=== PATIENT | male | born 1955 | race Caucasian/White ===

== ENCOUNTER 2016-11-08 20:12 | Inpatient (IN) | payer OTHER ==
--- NOTE | 2016-11-08 20:55 | EDPHY ---
H & P Stated Complaint: fall and put hands out now r shldr injury Time Seen by Provider: 11/08/16 20:55 HPI/ROS: CHIEF COMPLAINT: Right shoulder pain following mechanical fall HISTORY OF PRESENT ILLNESS: The patient presents to the emergency department with complaints of right shoulder pain following a mechanical fall. Patient reportedly tripped while walking this evening. He fell onto an outstretched hand landing primarily on his right shoulder. The patient did not strike his head or lose consciousness. He did sustain an abrasion to his right knee. The patient denies headache, neck pain, chest pain, back pain or any extremity complaints aside from his right shoulder pain. The patient does have a history of diabetes. He takes metformin for this condition. The patient is not anticoagulated. The patient has moderate pain with movement. The patient denies any acute focal numbness or weakness. 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 REVIEW OF SYSTEMS: A comprehensive 10 point review of systems is otherwise negative aside from elements mentioned in the history of present illness. Source: Patient Exam Limitations: No limitations - Personal History Current Tetanus/Diphtheria Vaccine: Unsure Current Tetanus Diphtheria and Acellular Pertussis (TDAP): Unsure - Medical/Surgical History Hx Asthma: No Hx Chronic Respiratory Disease: No Hx Diabetes: Yes Hx Cardiac Disease: No Hx Renal Disease: No Hx Cirrhosis: No Hx Alcoholism: No Hx HIV/AIDS: No Hx Splenectomy or Spleen Trauma: No - Social History Smoking Status: Never smoked - Physical Exam Exam: General Appearance: Alert, obese male, mild discomfort secondary to pain Head: Atraumatic Eyes: Pupils equal, round, reactive ENT, Mouth: No hemotympanum, no oral trauma Neck: Nontender, trachea midline Respiratory: No chest wall tender, subcutaneous air, lungs clear bilaterally Cardiovascular: Regular rate and rhythm Abdomen: Abdomen is soft and nontender, pelvis stable Skin: Superficial abrasion noted to the right knee Back: No midline T/L/S pain Extremities: Tenderness to palpation and decreased range of motion noted to the right right shoulder. Neurological: A&Ox3, normal motor function, normal sensory exam Constitutional: Initial Vital Signs Temperature (C) 36.8 C 11/08/16 20:32 Heart Rate 102 H 11/08/16 20:32 Respiratory Rate 19 11/08/16 20:32 Blood Pressure 152/96 H 11/08/16 20:32 O2 Sat (%) 92 11/08/16 20:32 O2 Delivery Mode Room Air Allergies/Adverse Reactions: No Known Allergies Allergy (Unverified 11/08/16 20:31) Home Medications: Medication Instructions Recorded Glucophage 500 mg (*) 11/08/16 Levothyroxine 11/08/16 Medical Decision Making - Diagnostics Imaging Results: Imaging Impressions Shoulder X-Ray 11/08/16 20:38 Impression: Comminuted fracture of the proximal right humeral head neck junction. Possible associated glenoid fracture superiorly. Right shoulder x-ray: Images reviewed by myself, comminuted humeral head fracture Imaging: Discussed imaging studies w/ call center consultant Radiologist, I viewed and interpreted images myself ED Course/Re-evaluation: The patient had an IV established. The patient received IV morphine. The patient is currently living in a hotel room here [facility]. He has no family traveling with him. The patient is unable to safely or dress himself currently. The patient does have an abrasion over his right knee but has normal range of motion nothing to suggest an acute fracture. The patient has no clinical evidence of a closed head injury or cervical spine fracture. The patient will require admission to the hospital for pain control and PT and OT evaluation. Dr. Taurus Yates from Orthopedic surgery has been consulted and will see the patient as an inpatient. Consultation was made with Dr. Cecilio uRiz from the hospitalist service. Differential Diagnosis: Differential diagnosis considered includes humerus fracture, neurovascular injury, laceration, metabolic abnormality, dehydration - Data Points Laboratory Results: Laboratory Results 11/08/16 21:30 11/08/16 21:30 11/08/16 11/08/16 21:30 21:30 WBC 10.66 10^3/uL H 10^3/uL (3.80-9.50) RBC 5.18 10^6/uL 10^6/uL (4.40-6.38) Hgb 15.0 g/dL g/dL (13.7-17.5) Hct 45.8 % % (40.0-51.0) MCV 88.4 fL fL (81.5-99.8) MCH 29.0 pg pg (27.9-34.1) MCHC 32.8 g/dL g/dL (32.4-36.7) RDW 15.5 % H % (11.5-15.2) Plt Count 242 10^3/uL 10^3/uL (150-400) MPV 10.9 fL fL (8.7-11.7) Neut % (Auto) 73.4 % % (39.3-74.2) Lymph % (Auto) 19.2 % % (15.0-45.0) [place] % (Auto) 6.3 % % (4.5-13.0) Eos % (Auto) 0.3 % L % (0.6-7.6) Baso % (Auto) 0.4 % % (0.3-1.7) Nucleat RBC Rel Count 0.0 % % (0.0-0.2) Absolute Neuts (auto) 7.83 10^3/uL H 10^3/uL (1.70-6.50) Absolute Lymphs (auto) 2.05 10^3/uL 10^3/uL (1.00-3.00) Absolute Monos (auto) 0.67 10^3/uL 10^3/uL (0.30-0.80) Absolute Eos (auto) 0.03 10^3/uL 10^3/uL (0.03-0.40) Absolute Basos (auto) 0.04 10^3/uL 10^3/uL (0.02-0.10) Absolute Nucleated RBC 0.00 10^3/uL 10^3/uL (0-0.01) Immature Gran % 0.4 % % (0.0-1.1) Immature Gran # 0.04 10^3/uL 10^3/uL (0.00-0.10) Sodium 140 mEq/L mEq/L (134-144) Potassium 4.9 mEq/L mEq/L (3.5-5.2) Chloride 104 mEq/L mEq/L (97-110) Carbon Dioxide 24 mEq/l mEq/l (22-31) Anion Gap 12 mEq/L mEq/L (8-16) BUN 23 mg/dL mg/dL (7-23) Creatinine 1.1 mg/dL mg/dL (0.7-1.3) Estimated GFR > 60 Glucose 146 mg/dL H mg/dL (70-100) Calcium 9.3 mg/dL mg/dL (8.5-10.4) Medications Given: Discontinued Medications Morphine Sulfate (Morphine) 4 mg IVP EDNOW ONE Stop: 11/08/16 21:18 Last Admin: 11/08/16 21:35 Dose: 4 mg Departure - Departure Disposition: [facility] Inpatient Acute Clinical Impression: Closed right humeral fracture, Diabetes Condition: Good
[2016-11-08] MEDS ORDERED: NS 1,000 ML IV ONE (21:35)
[2016-11-08 21:51] LABS: % IMMATURE GRANULYOCYTES 0.4 % (0.0-1.1); ABSOLUTE IMMATURE GRANULOCYTES 0.04 10^3/uL (0.00-0.10); ADD DIFF? NO; ADD MORPH? NO; ADD SCAN? NO; ATYPICAL LYMPHOCYTE FLAG 0 (0-99); FRAGMENT RBC FLAG 0 (0-99); HEMATOCRIT 45.8 % (40.0-51.0); LEFT SHIFT FLG 0 (0-99); LIPEMIA HEMOLYSIS FLAG 80 (0-99); MEAN CELL HEMOGLOBIN CONCENTR. 32.8 g/dL (32.4-36.7); MEAN CELL VOLUME 88.4 fL (81.5-99.8); MEAN PLATELET VOLUME 10.9 fL (8.7-11.7); PLATELET CLUMPS FLAG 10 (0-99); PLATELET COUNT 242 10^3/uL (150-400); RED BLOOD CELL COUNT 5.18 10^6/uL (4.40-6.38); RED CELL DISTRIBUTION WIDTH 15.5 % (11.5-15.2)
[2016-11-08 21:56] LABS: ANION GAP 12 mEq/L (8-16); CALCIUM 9.3 mg/dL (8.5-10.4); CARBON DIOXIDE 24 mEq/l (22-31); CHLORIDE 104 mEq/L (97-110); CREATININE 1.1 mg/dL (0.7-1.3); GLOMERULAR FILTRATION RATE > 60; GLUCOSE 146 mg/dL (70-100); POTASSIUM 4.9 mEq/L (3.5-5.2); SODIUM 140 mEq/L (134-144)
[2016-11-08] MEDS ORDERED: ONDANSETRON DISINTEGRATING 4 MG TAB PO PRN (23:53)
[2016-11-08] MEDS ORDERED: ONDANSETRON 4 MG/2 ML VIAL IVP PRN (23:53)
[2016-11-08] MEDS ORDERED: oxyCODONE IR 5 MG TAB PO PRN (23:54)
[2016-11-08] MEDS ORDERED: D50W 25 GM/50 ML SYR IVP PRN (23:56)
[2016-11-09] MEDS: ACETAMINOPHEN 325 MG TAB PO PRN ×2 (00:10→20:07)
[2016-11-09] MEDS ORDERED: NS 1,000 ML IV SCH (00:15)
--- NOTE | 2016-11-09 00:48 | GHP ---
[f rep st] HISTORY AND PHYSICAL DATE OF ADMISSION: 11/08/2016 CHIEF COMPLAINT: Comminuted fracture through right humeral head. HISTORY OF PRESENT ILLNESS: Patient is a 61-year-old Polish male here visiting from [place] for work, who presented to the emergency room after falling and developing right shoulder pain. He was on his way to dinner and tripped when he was walking. He fell out on outstretched hands, but primarily landed on his right shoulder. He did not strike his head or lose consciousness. He did have abrasions to his right knee. He denies any headache , neck pain, chest pain, back pain. No prodromal symptoms of shortness of breath , dizziness or clamminess. REVIEW OF SYSTEMS: I completed a 10-point review of systems. PAST MEDICAL HISTORY: Diabetes, hypothyroidism, obesity. PAST SURGICAL HISTORY: None. ALLERGIES: No known drug allergies. HOME MEDICATIONS: B12, metformin, Synthroid. 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 No tobacco. Endorses alcohol. No illicits. FAMILY HISTORY: Mother with diabetes. PHYSICAL EXAM: VITAL SIGNS: Temperature 36.8, blood pressure 152/96, heart rate 102, respirations 18, 92% on room air. GENERAL: Obese male sitting up in bed, no acute distress. HEENT: PERRLA. EOMI. Oropharynx clear. CV: Regular rate and rhythm. No murmurs, gallops or rubs. LUNGS: Clear to auscultation bilaterally. ABDOMEN: Obese, soft, nontender, nondistended. : No suprapubic tenderness. No Delarosa. MUSCULOSKELETAL: Right arm in a sling. Right knee abrasion. NEUROLOGIC: 2 through 12 intact. PSYCHIATRIC: Alert and oriented x3. LABORATORY DATA: WBC is 10, hemoglobin 15, hematocrit 45, platelets 242. Sodium 140, potassium 4.9, chloride 109, carbon dioxide 24, BUN 23, creatinine 1.1, glucose 146, calcium 9.3. Hand x-ray: No acute fracture. First CMC joint OA. Shoulder x-ray: Comminuted fracture of the proximal right humeral head neck junction. Possible associated glenoid fracture superiorly. ASSESSMENT AND PLAN: 1. Right humeral head neck junction fracture: due to mechanical fall. Minimal pain now. Orthopedics to see in morning. Continue Tylenol and p.r.n. oxycodone as needed. N.p.o. in case of surgical intervention. 2. Obesity. Counseled on diet and exercise. 3. Controlled diabetes: metformin at home; place on SSI here. 4. Acute shoulder pain: plan as noted above.. 5. Left hand pain. X-ray negative. 6. Diet. N.p.o. after midnight. 7. Deep vein thrombosis prophylaxis. Low risk, ambulatory. 8. Disposition. Patient warrants observation admission, given acute fracture warranting surgical evaluation and pain control. /[id number]/MODL MTDD
[2016-11-09 05:57] LABS: ANION GAP 8 mEq/L (8-16); CALCIUM 8.5 mg/dL (8.5-10.4); CARBON DIOXIDE 25 mEq/l (22-31); CHLORIDE 106 mEq/L (97-110); GLOMERULAR FILTRATION RATE > 60; GLUCOSE 120 mg/dL (70-100); POTASSIUM 4.4 mEq/L (3.5-5.2); SODIUM 139 mEq/L (134-144)
[2016-11-09] MEDS: INSULIN LISPRO 100 UNIT/ML SC SCH ×3 (08:50→18:05)
--- NOTE | 2016-11-09 11:25 | GCON ---
[f rep st] CONSULTATION DATE OF CONSULTATION: 11/09/2016 CHIEF COMPLAINT: Right shoulder pain. HISTORY OF PRESENT ILLNESS: This is a 61-year-old male who presents to the emergency department aft er a fall on November 08, 2016, with subsequent right shoulder pain. X-rays done in the ER show a fractu re of the right humerus. Patient has been in a simple sling for comfort. The patient states his pa in today is well-controlled and minimal at rest. Pain increases with any type of shoulder range of motion. Patient has been receiving oxycodone for pain with good relief. Patient states he is here visiting for work from [facility] [employer]. Patient denies any fever, chills, numbness, tingling, or wea kness. PAST MEDICAL HISTORY: Hypothyroid, diabetes, and obesity. PAST SURGICAL HISTORY: None. ALLERGIES: No known drug allergies. SOCIAL HISTORY: Patient here for business. 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 REVIEW OF SYSTEMS: No other complaints after a 10-point review. PHYSICAL EXAMINATION: GENERAL: The patient is a healthy, well-appearing male. He is alert, active , and in no acute distress. HEENT: Head is normocephalic, atraumatic. Nose, ears, and mouth appea r normal. Eye motion is intact. NECK: Normal in appearance with midline trachea. LUNGS: Chest m otion appears normal. Respirations are nonlabored. MUSCULOSKELETAL: Skin is intact over the right upper extremity without any ecchymosis, edema, erythema, or color. Patient has tenderness along th e anterior humerus. There is full range of motion of the elbow, wrists, and fingers bilaterally. S houlder range of motion and strength is not tested secondary to pain. Patient has sensation intact throughout, specifically of the deltoid muscle and sensory branches. Patient with good terminal worker strengt h. Radial pulse 2+ bilaterally. Calves are soft and nontender with negative Homans. SKIN: Please see dictation above. There is a small abrasion of the left palm. Otherwise, no other abrasions, e rythema, or tattoos. NEUROLOGICAL: Appears alert and oriented to person, place, and time. Speech is fluid and fluent. PSYCHIATRIC: Affect is normal. RADIOGRAPHIC DATA: 2-views of the right shoulder are reviewed and show a comminuted fracture throug h the right humeral neck. ASSESSMENT AND PLAN: Comminuted right humeral neck fracture. Discussed with patient that the fract ure does seem stable on films today. He will be transitioned from a simple sling into a gunslinger sling with abductor pillow. We will see if this sling gives him better pain control. Patient will be nonweightbearing of the right upper extremity. Wrist and hand range of motion is okay. Again, p atkayla will not have any range of motion of the right shoulder. No surgery at this time, but we carrie l watch the stability of the fracture closely. We will have the patient followup in the office in 1 week for repeat radiographs. Discussed with patient that he is able to rearrange his flight and he would prefer to extend his trip to further his care here in [place]. We will continue pain manage ment and ice as needed for any pain and swelling of the right shoulder. Patient understands and agr ees to the treatment plan today, and the possibility of needing operative treatment in the future. All of his questions have been answered today. /[id number]/MODL
--- NOTE | 2016-11-09 12:09 | HOSPPROG ---
Hospitalist Progress Note Assessment/Plan: 61y male with mechanical fall. #Right humeral neck fx nonsurgical nonweightbearing sling follow up 1 week with ortho #Pain cont supportive care #DM restart home meds #Obese #HTN home meds #Dispo unclear, unable to care for himself in hotel from [place] no family here D/W CM, develop dispo plan Subjective: Up in the chair. No complaints. Difficult to move. Objective: Vital Signs Temp Pulse Resp BP Pulse Ox 36.4 C 90 18 142/101 H 93 11/09/16 11:28 11/09/16 11:28 11/09/16 11:28 11/09/16 11:28 11/09/16 11:28 Laboratory Results 11/09/16 05:28 11/08/16 11/09/16 11/10/16 05:59 05:59 05:59 Intake Total 1600 Output Total 300 Balance 1600 -300 - Physical Exam Constitutional: no apparent distress, appears nourished, obese Eyes: PERRL, anicteric sclera, EOMI Ears, Nose, Mouth, Throat: moist mucous membranes, hearing normal, ears appear normal Cardiovascular: No JVD, No tachycardia, No edema Respiratory: no respiratory distress, no rales or rhonchi, reduced air movement Gastrointestinal: No tenderness, No ascites, No guarding Skin: warm, normal color, No no rashes or abrasions Musculoskeletal: joint tenderness, pain with ROM, generalized weakness Neurologic: AAOx3 Psychiatric: interacting appropriately, not anxious, not encephalopathic ICD10 Worksheet Patient Problems: Problems Problem Status Onset Closed right humeral fracture Acute Diabetes Acute
[2016-11-09] MEDS ORDERED: CYANOCOBALAMIN 1000 MG PO SCH (16:00)
[2016-11-09] MEDS ORDERED: CYANO/VITAMIN B12 1000 MCG TAB PO SCH (16:00)
[2016-11-09] MEDS: BISOPROLOL FUMARATE 5 MG TAB PO SCH ×2 (16:18→21:22)
[2016-11-09] MEDS ORDERED: METFORMIN 1000 MG PO SCH (18:00)
[2016-11-09] MEDS: METFORMIN PO SCH (21:16)
[2016-11-10] MEDS ORDERED: TEMAZEPAM 15 MG CAP PO PRN (03:07)
[2016-11-10] MEDS: ACETAMINOPHEN 325 MG TAB PO PRN ×2 (03:12→22:19)
--- NOTE | 2016-11-10 06:50 | SOAPPROG ---
REDDY Progress Note Assessment/Plan: Assessment/Plan: Right proximal humeral neck fracture, comminuted -Nonoperative management at this time -Cont PT/OT, will remain NWB of RUE, remain in abduction sling at all times, ok for hand/wrist ROM -Cont current PO pain regimen -Will likely need some assistance w/ lodging/care at d/c -Pt cleared to d/c from ortho standpoint, will f/u w/ Dr. Yates in 1 week for repeat radiographs and assessment 11/10/16 10:55 Subjective: Pt seen at bedside, sitting up. States he is tolerating his diet and medications well, current pain a 2/10. Tolerating abduction sling well, and states he has been compliant with his activity/ROM restrictions. Denies any mauro , sob, cp, abd pain, bilat calf pain or new onset n/t. No additional concerns or complaints at this time. The pt notes he is here visiting from [place], and is not sure if his coverage will allow him to arrange any lodging or additional care before he is cleared to fly. We have discussed possible options and will have case management eval. Objective: Vital Signs Temp Pulse Resp BP Pulse Ox 35.9 C L 86 18 120/83 H 96 11/10/16 05:22 11/10/16 05:22 11/10/16 00:00 11/10/16 05:22 11/10/16 05:22 Laboratory Results 11/09/16 05:28 11/09/16 11/10/16 11/11/16 05:59 05:59 05:59 Intake Total 1600 250 Output Total 550 Balance 1600 -300 Pt seen at bedside. A&Ox3, appropriate mood and affect, pleasant and cooperative with exam. VSS. RUE in abduction sling. TTP over proximal humerus. Upper arm compartments are supple, forearm compartments are supple. Radial and ulnar pulses are intact and equal compared bilat. Pt intact to light touch sensation distally. Pt moves fingers and hand well. DNVI BUE. ICD10 Worksheet Patient Problems: Problems Problem Status Onset Closed right humeral fracture Acute Diabetes Acute
[2016-11-10] MEDS: BISOPROLOL FUMARATE 5 MG TAB PO SCH (08:06)
[2016-11-10] MEDS: INSULIN LISPRO 100 UNIT/ML SC SCH ×3 (08:07→16:20)
[2016-11-10] MEDS: METFORMIN PO SCH ×2 (08:07→20:53)
[2016-11-10] MEDS ORDERED: BLOOD PRESSURE MEDICATION PO SCH (09:00)
--- NOTE | 2016-11-10 13:57 | HOSPPROG ---
Hospitalist Progress Note Assessment/Plan: 61y male with mechanical fall. #Right humeral neck fx nonsurgical nonweightbearing sling follow up 1 week with ortho #Pain cont supportive care #DM restart home meds #Obese #HTN home meds #Dispo unclear, unable to care for himself in hotel from [place] no family here D/W CM, develop dispo plan hopefully in am Subjective: Pain controlled. Up eating breakfast. No specific complaints. Objective: Vital Signs Temp Pulse Resp BP Pulse Ox 37.1 C 88 16 129/84 H 90 L 11/10/16 11:18 11/10/16 11:18 11/10/16 11:18 11/10/16 11:18 11/10/16 11:18 Laboratory Results 11/09/16 05:28 11/09/16 11/10/16 11/11/16 05:59 05:59 05:59 Intake Total 1600 250 Output Total 550 Balance 1600 -300 - Physical Exam Constitutional: appears nourished, obese Eyes: PERRL, anicteric sclera, EOMI Ears, Nose, Mouth, Throat: moist mucous membranes, hearing normal, ears appear normal Cardiovascular: No JVD, No tachycardia, No edema Respiratory: no respiratory distress, reduced air movement Gastrointestinal: No tenderness, No ascites Skin: warm, normal color Musculoskeletal: no joint effusions, muscular tenderness, No normal joint ROM Neurologic: AAOx3 Psychiatric: not anxious, not encephalopathic, thought process linear ICD10 Worksheet Patient Problems: Problems Problem Status Onset Closed right humeral fracture Acute Diabetes Acute
[2016-11-11] MEDS: ACETAMINOPHEN 325 MG TAB PO PRN ×2 (04:29→08:43)
--- NOTE | 2016-11-11 07:51 | SOAPPROG ---
SOAP Progress Note Assessment/Plan: Assessment/Plan: Right proximal humeral neck fracture, comminuted -Nonoperative management at this time -Cont PT/OT, will remain NWB of RUE, remain in abduction sling at all times, ok for hand/wrist ROM -Cont current PO pain regimen as tolerated -Will likely need some assistance w/ lodging/care at d/c -Pt cleared to d/c from ortho standpoint, will f/u w/ Dr. Yates in 1 week for repeat radiographs and assessment -CM working on placement plan for d/c 11/11/16 07:51 Subjective: Pt seen at bedside, sitting up. States he is tolerating his diet and medications well, current pain a 0/10. Tolerating abduction sling well, and states he has been compliant with his activity/ROM restrictions. He does note some difficulty sleeping overnight related to positioning with his sling. No additional concerns or complaints at this time. The pt notes he is here visiting from [place]. 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 Pt notes he will also need help extending his visa for this extended stay. Objective: Vital Signs Temp Pulse Resp BP Pulse Ox 36.6 C 77 18 137/86 H 93 11/10/16 23:48 11/10/16 23:48 11/11/16 04:32 11/11/16 04:32 11/11/16 04:32 11/10/16 11/11/16 11/12/16 05:59 05:59 05:59 Intake Total 450 Output Total 200 Balance 250 Pt seen at bedside. A&Ox3, appropriate mood and affect, pleasant and cooperative with exam. VSS. RUE in abduction sling. TTP over proximal humerus. Upper arm compartments are supple, forearm compartments are supple. Radial and ulnar pulses are intact and equal compared bilat. Pt intact to light touch sensation distally. Pt moves fingers and hand well. Right neck musculature more relaxed on exam in comparison to yesterday. DNVI NICK. ICD10 Worksheet Patient Problems: Problems Problem Status Onset Closed right humeral fracture Acute Diabetes Acute
[2016-11-11] MEDS: INSULIN LISPRO 100 UNIT/ML SC SCH ×2 (08:03→11:35)
[2016-11-11] MEDS: METFORMIN PO SCH (08:42)
[2016-11-11] MEDS: BISOPROLOL FUMARATE 5 MG TAB PO SCH (08:43)
--- NOTE | 2016-11-11 14:18 | PDDCSUM ---
Discharge Summary Discharge Summary: 61y male admitted after mechanical fall and subsequent right humeral neck fracture. Nonsurgical mgmt. He is to remain nonweightbearing. It is being managed conservatively with a abduction sling and the plan is for the pt to f/u with ortho (Dr. Yates) in 1 week. OK for hand/wrist ROM. He will be provided Oxycodone 5mg pills for pain mgmt. He has a hx of insomnia and I've given him a prescription for Temazepam He has other medical issues including DM and HTN and no changes to his medications were made. His flight/travel insurance for was filled out. He is planning to be able to return to [place] upon further improvement of the fracture which is being managed by ortho. DDX" #Right humeral neck fx nonsurgical nonweightbearing sling follow up 1 week with ortho #DM restart home meds #Obese #HTN home meds #Hypoxemia: the patient needs O2 intermittently 2l/min. Exam: VSS on 2 L O2 NAD AAOX3 MMM NO JVD RRR DECREASED BREATH SOUNDS OBESE, S/NT/ND RIGHT ARM IN SLING DISCHARGE MEDS: SEE MED REC F/U: PER ABOVE TOTAL TIME SPENT ON DISCHARGE IS 36 MINS
[2016-11-11 15:17] VITALS: RESP 16; TEMP 97.9
[2016-11-11 16:59] VITALS: BP 148/82; PULSE 88; O2SAT 91
== END 2016-11-11 17:00 | disposition home or self-care (01) | DRG 563 ==
LOC: F3N 11-09 04:59 → OBSVTOIN 11-10 14:00
PROVIDERS: ADMIT Student in an Organized Health Care Education/Training Program; ATTEND Family Medicine
DX: S42.291A Other displaced fracture of upper end of right humerus, initial encounter for closed fracture (principal); E11.9 Type 2 diabetes mellitus without complications; I10 Essential (primary) hypertension; G47.00 Insomnia, unspecified; W01.0XXA Fall on same level from slipping, tripping and stumbling without subsequent striking against object, initial encounter
CPT/HCPCS: 96374; 97161-GP; 97165-GO; 97530-GP; 97535-GO; G0378